=== PATIENT | male | born 1945 | race Caucasian/White ===

== ENCOUNTER 2016-08-16 07:33 | Emergency (ER) | payer BC, OTHER ==
[~2016-08-16] VITALS: Ht 165.1 cm; Wt 64.0 kg
[~2016-08-16 07:33] MED LIST: ATEN-42 PO; CARB1TAB9 PO; DEXL60CA3 PO; DOCU-138 PO; ENAL20TA PO; [UNRECOGNIZED DRUG - CODE] PO
[2016-08-16] MEDS ORDERED: SODIUM CHLORIDE 0.9% 500 ML IV ONE (08:00)
[2016-08-16] MEDS ORDERED: ONDANSETRON HCL 4MG/2ML VIAL IV ONE (08:00)
[2016-08-16] MEDS ORDERED: DEXAMETHASONE 10MG/ML 1ML VIAL IV ONE (08:00)
[2016-08-16] MEDS ORDERED: MECLIZINE 25MG TABLET PO ONE (08:00)
[2016-08-16 08:20] LABS: BASOPHILS % 0.3 % (0.0-2.0); HEMATOCRIT. 38.5 % (42.0-52.0); HEMOGLOBIN. 12.9 g/dL (14.0-18.0); LYMPHOCYTES % 19.7 % (20.0-50.0); MEAN CORPUSCULAR HEMOGLOBIN 29.8 pg (28.0-32.0); MEAN CORPUSCULAR HGB CONC 33.5 g/dL (31.0-37.0); MEAN CORPUSCULAR VOLUME 88.9 fL (80.0-94.0); MEAN PLATELET VOLUME 7.6 fl (7.4-10.4); MONOCYTES % 7.4 % (2.0-8.0); NEUTROPHILS % 70.6 % (40.0-76.0); PLATELET 167 x1000/uL (130-400); RED BLOOD CELL COUNT 4.34 mill/uL (4.7-6.1); RED CELL DISTRIBUTION WIDTH 14.2 % (11.6-14.6); WHITE BLOOD COUNT 6.5 x1000/uL (4.5-11.0)
[2016-08-16 08:25] LABS: CHLORIDE 100 mEq/L (98-107); INDEX HEMOLYSI 1 (1-3); INDEX ICTERIC 1 (1-4); INDEX LIPEMIC 1 (1-3); PARTIAL THROMBOPLASTIN TIME 24.6 sec (24.0-34.0); PROTHROMBIN TIME 10.4 sec
[2016-08-16 08:29] LABS: ALBUMIN 3.6 g/dL (3.4-5.0); ANION GAP 12; CALCIUM 8.6 mg/dL (8.5-10.1); CARBON DIOXIDE 30 mEq/L (21-32); UREA NITROGEN BLOOD 16 mg/dL (7-21)
[2016-08-16 08:30] LABS: ALANINE AMINOTRANSFERASE 9 IU/L (13-61); eGFR > 60 mL/min (>60)
[2016-08-16 08:36] LABS: CREATINE KINASE MB FRACTION 1.5 ng/mL (0.5-3.6); TROPONIN I < 0.02 ng/mL (0.00-0.04)
[2016-08-16 08:38] LABS: NT PRO B-TYPE NATRIURETIC PEP 39 pg/mL (5-125)
[2016-08-16] MEDS ORDERED: NITROGLYCERIN OINT 1GM/INCH UDPKT TD ONE (11:00)
[2016-08-16] MEDS ORDERED: ASPIRIN 81MG TABLET PO ONE (11:00)
[2016-08-16 15:49] VITALS: BP 106/56
== END 2016-08-16 16:12 | disposition left against medical advice (07) ==
LOC: ER 08:13
DX: R07.9 Chest pain, unspecified (principal); R42 Dizziness and giddiness; I10 Essential (primary) hypertension; K21.9 Gastro-esophageal reflux disease without esophagitis; N40.0 Benign prostatic hyperplasia without lower urinary tract symptoms; Z79.1 Long term (current) use of non-steroidal anti-inflammatories (NSAID); Z79.899 Other long term (current) drug therapy; Z90.49 Acquired absence of other specified parts of digestive tract; Z87.891 Personal history of nicotine dependence; Z98.890 Other specified postprocedural states
CPT/HCPCS: 36415; 70450; 71010; 80053; 82553; 83735; 83880; 84484; 85025; 85610; 85730; 93005; 96374; 96375; 99285; J1100; J2405; J7040; J8597

== ENCOUNTER 2018-01-09 04:53 | Emergency (ER) | payer BC ==
[~2018-01-09] VITALS: Ht 165.1 cm; Wt 81.8 kg
[~2018-01-09 04:53] MED LIST changes: +ACET650S25 PO; -[UNRECOGNIZED DRUG - CODE] PO
[2018-01-09] MEDS ORDERED: SODIUM CHLORIDE 0.9% 1,000 ML IV ONE (05:36)
[2018-01-09 06:18] LABS: BASOPHILS % 0.4 % (0.0-2.0); EOSINOPHILS % 2.4 % (0.0-5.0); HEMATOCRIT. 39.8 % (42.0-52.0); HEMOGLOBIN. 13.5 g/dL (14.0-18.0); LYMPHOCYTES % 21.8 % (20.0-50.0); MEAN CORPUSCULAR VOLUME 88.7 fL (80.0-94.0); MEAN PLATELET VOLUME 8.9 fl (7.4-10.4); NEUTROPHILS % 67.4 % (40.0-76.0); PLATELET 224 x1000/uL (130-400); RED BLOOD CELL COUNT 4.49 mill/uL (4.7-6.1); RED CELL DISTRIBUTION WIDTH 13.6 % (11.6-14.6)
[2018-01-09 06:23] LABS: CHLORIDE 102 mEq/L (98-107)
[2018-01-09 08:15] LABS: CLARITY URINE CLEAR (CLEAR); COLOR URINE YELLOW (YELLOW); KETONES URINE NEGATIVE (NEGATIVE); LEUKOCYTE ESTERASE URINE NEGATIVE (NEGATIVE); NITRITE URINE NEGATIVE (NEGATIVE); OCCULT BLOOD URINE 1+ (NEGATIVE); PH URINE 6.5 (4.5-8.0); PROTEIN URINE NEGATIVE (NEGATIVE); SPECIFIC GRAVITY URINE 1.031 (1.005-1.030)
[2018-01-09 11:30] VITALS: BP 97/60
== END 2018-01-09 11:36 | disposition home or self-care (01) ==
LOC: ER 05:12
DX: E86.0 Dehydration (principal); R53.1 Weakness; R31.29 Other microscopic hematuria; I10 Essential (primary) hypertension; M54.31 Sciatica, right side; N40.0 Benign prostatic hyperplasia without lower urinary tract symptoms; G20 Parkinson's disease; Z98.890 Other specified postprocedural states
CPT/HCPCS: 36415; 70450; 71045; 74176; 80053; 81003; 83605; 84484; 85025; 93005; 96360; 96361; 99285; J7030

== ENCOUNTER 2021-01-02 17:39 | Inpatient (IN) | payer MEDICARE, MEDICAID ==
[~2021-01-02] VITALS: Ht 167.6 cm; Wt 68.5 kg
[~2021-01-02 17:39] MED LIST changes: -ACET650S25 PO; -ATEN-42 PO; +CYAN100096 PO; -DEXL60CA3 PO; -DOCU-138 PO; +DOCU-150 PO; -ENAL20TA PO; +ENAL20TA18 PO; +LORA-250 PO; +OMEP40CA12 PO; +PHEN1SUP42 RC; +PRAM0.5T3 PO; +TRAM50TA3 PO
[2021-01-02] MEDS ORDERED: SODIUM CHLORIDE 0.9% 1000ML BAG (SEPSIS BOLUS) IV ONE (20:15)
[2021-01-02 20:35] LABS: HEMATOCRIT. 36.6 % (42.0-52.0); HEMOGLOBIN. 12.5 g/dL (14.0-18.0); MEAN CORPUSCULAR HEMOGLOBIN 30.1 pg (28.0-32.0); MEAN CORPUSCULAR VOLUME 88.5 fL (80.0-94.0); MEAN PLATELET VOLUME 8.3 fl (7.4-10.4); PLATELET 157 x1000/uL (130-400); RED BLOOD CELL COUNT 4.13 mill/uL (4.7-6.1); RED CELL DISTRIBUTION WIDTH 13.9 % (11.6-14.6)
[2021-01-02 20:36] LABS: CHLORIDE 109 mEq/L (98-107)
[2021-01-02 20:46] LABS: INR 1.1; PROTHROMBIN TIME 11.7 sec (9.6-11.0)
[2021-01-02 21:05] LABS: PLATELET ESTIMATE NORMAL
[2021-01-02] MEDS ORDERED: CARBIDOPA/LEVODOPA 25/100MG TABLET PO ONE (22:15)
[2021-01-03] MEDS ORDERED: VANCOMYCIN 1 G PREMIX 200 ML IV NR
[2021-01-03] MEDS ORDERED: POTASSIUM CHLORIDE 20MEQ TABLET SR PO NR
[2021-01-03] MEDS ORDERED: CEFTRIAXONE 1 G PREMIX 50 ML IV NR
[2021-01-03] MEDS ORDERED: IPRATROPIUM/ALBUTEROL 0.5-3(2.5)MG/3ML NEB HHN PRN (01:00)
[2021-01-03] MEDS ORDERED: TRAMADOL 50MG TABLET PO PRN (01:00)
[2021-01-03] MEDS ORDERED: ACETAMINOPHEN 325MG TABLET PO PRN (01:00)
[2021-01-03] MEDS ORDERED: ONDANSETRON HCL 4MG/2ML INJ IV PRN (01:00)
[2021-01-03] MEDS: PIPERACILLIN/TAZ 3.375G PREMIX 50 ML IV SCH ×2 (01:33→06:40)
[2021-01-03] MEDS ORDERED: IOHEXOL-300 100 ML BOTTLE ONE (02:22)
[2021-01-03] MEDS: PRAMIPEXOLE DI-HCL 0.25MG TABLET PO SCH ×3 (03:32→21:41)
[2021-01-03] MEDS: CARBIDOPA/LEVODOPA 25/100MG TABLET PO SCH ×3 (04:06→15:15)
[2021-01-03] MEDS: PANTOPRAZOLE 40MG DR TABLET PO SCH ×2 (06:41→21:41)
[2021-01-03] MEDS: ENOXAPARIN 40MG/0.4ML SYR SUBCUT SCH ×2 (09:00→10:43)
[2021-01-03] MEDS: LISINOPRIL 40MG TABLET PO SCH (09:00)
[2021-01-03 10:00] VITALS: BP 121/73
[2021-01-03] MEDS: CYANOCOBALAMIN 1000MCG TABLET PO SCH (10:44)
[2021-01-03] MEDS: DOCUSATE SODIUM 100MG CAPSULE PO SCH (10:44)
[2021-01-03 12:00] VITALS: BP 132/72
[2021-01-03 12:40] VITALS: BP 121/73
[2021-01-03] MEDS: PIPERACILLIN/TAZOBACTAM 3.375 G in DEXTROSE 5% WATER 50 ML IV SCH ×2 (13:01→18:11)
[2021-01-03 16:00] VITALS: BP 120/70
[2021-01-03] MEDS ORDERED: NALOXONE HCL 0.4MG/ML VIAL IV PRN (17:00)
[2021-01-03 18:30] LABS: BASOPHILS % 0.3 % (0.0-2.0); EOSINOPHILS % 1.8 % (0.0-5.0); HEMATOCRIT. 34.5 % (42.0-52.0); HEMOGLOBIN. 11.8 g/dL (14.0-18.0); LYMPHOCYTES % 16.9 % (20.0-50.0); MEAN CORPUSCULAR HEMOGLOBIN 30.7 pg (28.0-32.0); MEAN CORPUSCULAR VOLUME 90.2 fL (80.0-94.0); PLATELET 141 x1000/uL (130-400); RED BLOOD CELL COUNT 3.83 mill/uL (4.7-6.1); RED CELL DISTRIBUTION WIDTH 14.2 % (11.6-14.6)
[2021-01-03 18:38] LABS: CHLORIDE 109 mEq/L (98-107)
[2021-01-03 20:00] VITALS: BP 121/81
[2021-01-04] VITALS: BP 113/89
[2021-01-04] MEDS: PIPERACILLIN/TAZOBACTAM 3.375 G in DEXTROSE 5% WATER 50 ML IV SCH ×4 (00:30→18:00)
[2021-01-04] MEDS: PRAMIPEXOLE DI-HCL 0.25MG TABLET PO SCH ×2 (03:05→12:33)
[2021-01-04] MEDS: CARBIDOPA/LEVODOPA 25/100MG TABLET PO SCH ×3 (03:05→15:48)
[2021-01-04] MEDS: PANTOPRAZOLE 40MG DR TABLET PO SCH (06:51)
[2021-01-04 07:27] LABS: CHLORIDE 107 mEq/L (98-107)
[2021-01-04 07:50] LABS: BASOPHILS % 0.5 % (0.0-2.0); EOSINOPHILS % 3.5 % (0.0-5.0); HEMOGLOBIN. 11.9 g/dL (14.0-18.0); LYMPHOCYTES % 24.5 % (20.0-50.0); MEAN CORPUSCULAR HEMOGLOBIN 30.5 pg (28.0-32.0); MEAN CORPUSCULAR VOLUME 89.5 fL (80.0-94.0); MEAN PLATELET VOLUME 9.3 fl (7.4-10.4); MONOCYTES % 10.9 % (2.0-8.0); NEUTROPHILS % 60.6 % (40.0-76.0); PLATELET 152 x1000/uL (130-400); RED BLOOD CELL COUNT 3.91 mill/uL (4.7-6.1)
[2021-01-04 08:00] VITALS: BP 111/66
[2021-01-04] MEDS: ENOXAPARIN 40MG/0.4ML SYR SUBCUT SCH ×2 (09:00→09:46)
[2021-01-04] MEDS: LISINOPRIL 40MG TABLET PO SCH (09:45)
[2021-01-04] MEDS: CYANOCOBALAMIN 1000MCG TABLET PO SCH (09:45)
[2021-01-04] MEDS: DOCUSATE SODIUM 100MG CAPSULE PO SCH (09:45)
[2021-01-04 12:00] VITALS: BP 109/71
[2021-01-04 16:00] VITALS: BP 114/60
[2021-01-04 16:35] VITALS: BP 113/60
[2021-01-04 20:00] VITALS: BP_SYST 113; BP_SYST 133; BP_DIAS 55; BP_DIAS 68
== END 2021-01-04 21:00 | disposition home or self-care (01) | DRG 641 ==
LOC: ER 17:39 → MICUSO 01-03 00:09 → EDBEDREQDT 01-03 00:23 → EDBEDREQSVC 01-03 00:23 → EDBEDREQTM 01-03 00:23 → EDBEDREQ 01-03 00:23 → 7EST 01-03 08:43
PROVIDERS: ADMIT Internal Medicine Pulmonary Disease; ATTEND Internal Medicine Pulmonary Disease
DX: E86.0 Dehydration (principal); K52.9 Noninfective gastroenteritis and colitis, unspecified; G20 Parkinson's disease; K59.00 Constipation, unspecified; I10 Essential (primary) hypertension; K21.9 Gastro-esophageal reflux disease without esophagitis; N40.0 Benign prostatic hyperplasia without lower urinary tract symptoms; F17.200 Nicotine dependence, unspecified, uncomplicated; M47.9 Spondylosis, unspecified; E11.9 Type 2 diabetes mellitus without complications; Z79.899 Other long term (current) drug therapy; Z87.440 Personal history of urinary (tract) infections; E87.6 Hypokalemia; D72.825 Bandemia
CPT/HCPCS: 36415; 71045; 74177; 80048; 80053; 82728; 83605; 83615; 84145; 84484; 85025; 85379; 93005; 97162; 99291; J0696; J1650; J2543; J3370; J7030; J7040; J7060; Q9967

== ENCOUNTER 2021-01-08 12:49 | Emergency (ER) | payer MEDICARE, MEDICAID ==
[~2021-01-08] VITALS: Ht 165.1 cm; Wt 68.0 kg
[2021-01-08] MEDS ORDERED: MAGNESIUM/ALUMINUM HYDROXIDE/SIMETHICONE 30ML UDC PO STA (13:23)
[2021-01-08 14:05] LABS: CHLORIDE 111 mEq/L (98-107)
[2021-01-08 14:17] LABS: BASOPHILS % 0.5 % (0.0-2.0); EOSINOPHILS % 2.2 % (0.0-5.0); HEMATOCRIT. 38.4 % (42.0-52.0); HEMOGLOBIN. 12.7 g/dL (14.0-18.0); LYMPHOCYTES % 20.6 % (20.0-50.0); MEAN CORPUSCULAR HEMOGLOBIN 29.6 pg (28.0-32.0); MEAN CORPUSCULAR VOLUME 89.1 fL (80.0-94.0); MONOCYTES % 7.3 % (2.0-8.0); NEUTROPHILS % 69.4 % (40.0-76.0); PLATELET 228 x1000/uL (130-400)
[2021-01-08 14:20] LABS: CLARITY URINE CLEAR (CLEAR); COLOR URINE YELLOW (YELLOW); KETONES URINE TRACE (NEGATIVE); LEUKOCYTE ESTERASE URINE NEGATIVE (NEGATIVE); NITRITE URINE NEGATIVE (NEGATIVE); OCCULT BLOOD URINE NEGATIVE (NEGATIVE); PH URINE 5.5 (4.5-8.0); PROTEIN URINE TRACE (NEGATIVE); SPECIFIC GRAVITY URINE 1.035 (1.005-1.030); UROBILINOGEN URINE 0.2 E.U./dL (0.2-1.0)
[2021-01-08] MEDS ORDERED: ONDA4TAB5 MT (15:32)
[2021-01-08 16:20] VITALS: BP 114/72
== END 2021-01-08 16:24 | disposition home or self-care (01) ==
LOC: ER 12:57
DX: R10.33 Periumbilical pain (principal); K21.9 Gastro-esophageal reflux disease without esophagitis; I10 Essential (primary) hypertension; Z79.899 Other long term (current) drug therapy
CPT/HCPCS: 36415; 74176; 80053; 81003; 85025; 93005; 99285

== ENCOUNTER 2021-09-24 06:09 | Emergency (ER) | payer MEDICARE, MEDICAID ==
[~2021-09-24] VITALS: Ht 170.2 cm; Wt 73.0 kg
[~2021-09-24 06:09] MED LIST changes: -OMEP40CA12 PO; +OMEP40CA20 PO; +ONDA4TAB5 MT
[2021-09-24 06:46] LABS: BASOPHILS % 0.4 % (0.0-2.0); EOSINOPHILS % 2.2 % (0.0-5.0); HEMATOCRIT. 37.8 % (42.0-52.0); HEMOGLOBIN. 12.8 g/dL (14.0-18.0); LYMPHOCYTES % 31.6 % (20.0-50.0); MEAN CORPUSCULAR HEMOGLOBIN 30.7 pg (28.0-32.0); MEAN CORPUSCULAR VOLUME 90.9 fL (80.0-94.0); MEAN PLATELET VOLUME 7.9 fl (7.4-10.4); MONOCYTES % 9.4 % (2.0-8.0); NEUTROPHILS % 56.4 % (40.0-76.0); PLATELET 175 x1000/uL (130-400); RED BLOOD CELL COUNT 4.16 mill/uL (4.7-6.1); RED CELL DISTRIBUTION WIDTH 14.7 % (11.6-14.6)
[2021-09-24 06:50] LABS: CHLORIDE 107 mEq/L (98-107)
[2021-09-24 06:56] LABS: PHOSPHORUS 4.2 mg/dL (2.5-4.9)
[2021-09-24 07:38] LABS: CLARITY URINE CLEAR (CLEAR); COLOR URINE YELLOW (YELLOW); KETONES URINE TRACE (NEGATIVE); LEUKOCYTE ESTERASE URINE 2+ (NEGATIVE); NITRITE URINE NEGATIVE (NEGATIVE); OCCULT BLOOD URINE TRACE (NEGATIVE); PH URINE 5.5 (4.5-8.0); PROTEIN URINE NEGATIVE (NEGATIVE); SPECIFIC GRAVITY URINE 1.023 (1.005-1.030); UROBILINOGEN URINE 0.2 E.U./dL (0.2-1.0)
[2021-09-24] MEDS ORDERED: KETOROLAC 30MG/ML VIAL IV ONE (07:45)
[2021-09-24] MEDS ORDERED: CEFTRIAXONE 1 G PREMIX 50 ML IV ONE (08:30)
[2021-09-24 09:08] VITALS: BP 91/52
[2021-09-24] MEDS ORDERED: KETOROLAC 30MG/ML VIAL IV SCH (09:15)
[2021-09-24] MEDS ORDERED: CEFP200T13 MT (09:17)
== END 2021-09-24 10:42 | disposition home or self-care (01) ==
LOC: ER 06:09
DX: R42 Dizziness and giddiness (principal); N39.0 Urinary tract infection, site not specified; K21.9 Gastro-esophageal reflux disease without esophagitis; I10 Essential (primary) hypertension; Z79.899 Other long term (current) drug therapy
CPT/HCPCS: 36415; 71045; 80053; 81003; 83735; 83880; 84100; 84484; 85025; 87077; 87086; 87186; 93005; 96374; 96375; 99285; J0696; J1885

== ENCOUNTER 2021-11-24 11:11 | Emergency (ER) | payer MEDICARE, MEDICAID ==
[~2021-11-24] VITALS: Ht 157.5 cm; Wt 68.0 kg
[~2021-11-24 11:11] MED LIST changes: +CEFP200T13 MT
[2021-11-24 11:49] LABS: BASOPHILS % 0.4 % (0.0-2.0); EOSINOPHILS % 1.5 % (0.0-5.0); HEMATOCRIT. 37.2 % (42.0-52.0); HEMOGLOBIN. 12.5 g/dL (14.0-18.0); LYMPHOCYTES % 19.9 % (20.0-50.0); MEAN CORPUSCULAR HEMOGLOBIN 30.5 pg (28.0-32.0); MEAN CORPUSCULAR VOLUME 90.5 fL (80.0-94.0); MEAN PLATELET VOLUME 7.7 fl (7.4-10.4); NEUTROPHILS % 72.2 % (40.0-76.0); PLATELET 255 x1000/uL (130-400); RED BLOOD CELL COUNT 4.11 mill/uL (4.7-6.1); RED CELL DISTRIBUTION WIDTH 14.3 % (11.6-14.6)
[2021-11-24 11:58] LABS: CHLORIDE 107 mEq/L (98-107)
[2021-11-24] MEDS ORDERED: FAMOTIDINE 20MG TABLET PO NR (12:15)
[2021-11-24] MEDS ORDERED: MAGNESIUM/ALUMINUM HYDROXIDE/SIMETHICONE 30ML UDC PO NR (12:15)
[2021-11-24] MEDS ORDERED: VISCOUS LIDOCAINE 2% 15 ML UDC PO NR (12:30)
[2021-11-24] MEDS ORDERED: IOHEXOL-350 100 ML BOTTLE ONE (15:56)
[2021-11-24 16:55] VITALS: BP 105/70
== END 2021-11-24 16:56 | disposition home or self-care (01) ==
LOC: ER 11:11
DX: R06.02 Shortness of breath (principal); J02.9 Acute pharyngitis, unspecified; I48.91 Unspecified atrial fibrillation; I10 Essential (primary) hypertension; Z79.899 Other long term (current) drug therapy; Z20.822 Contact with and (suspected) exposure to COVID-19
CPT/HCPCS: 36415; 71045; 71275; 80053; 83880; 84484; 85025; 85379; 87426; 93005; 99285; C9803; Q9967

== ENCOUNTER 2021-12-16 11:33 | Emergency (ER) | payer MEDICARE, MEDICAID ==
[~2021-12-16] VITALS: Ht 165.1 cm; Wt 71.0 kg
[2021-12-16 12:40] LABS: CHLORIDE 108 mEq/L (98-107)
[2021-12-16 14:24] LABS: BASOPHILS % 0.3 % (0.0-2.0); EOSINOPHILS % 2.6 % (0.0-5.0); HEMATOCRIT. 36.4 % (42.0-52.0); HEMOGLOBIN. 12.3 g/dL (14.0-18.0); LYMPHOCYTES % 22.2 % (20.0-50.0); MEAN CORPUSCULAR HEMOGLOBIN 30.5 pg (28.0-32.0); MEAN CORPUSCULAR VOLUME 90.4 fL (80.0-94.0); MEAN PLATELET VOLUME 8.7 fl (7.4-10.4); MONOCYTES % 8.3 % (2.0-8.0); NEUTROPHILS % 66.6 % (40.0-76.0); PLATELET 179 x1000/uL (130-400); RED BLOOD CELL COUNT 4.02 mill/uL (4.7-6.1); RED CELL DISTRIBUTION WIDTH 13.8 % (11.6-14.6)
[2021-12-16] MEDS ORDERED: ONDA4TAB11 PO ×2 (15:26)
[2021-12-16] MEDS ORDERED: MECLIZINE 25MG TABLET PO ONE (15:45)
[2021-12-16 16:31] VITALS: BP 128/73
[2021-12-16] MEDS ORDERED: MECL-159 MT (16:48)
== END 2021-12-16 16:39 | disposition home or self-care (01) ==
LOC: ER 11:33
DX: H81.10 Benign paroxysmal vertigo, unspecified ear (principal); R07.9 Chest pain, unspecified; I48.91 Unspecified atrial fibrillation; D64.9 Anemia, unspecified; I10 Essential (primary) hypertension; G20 Parkinson's disease; Z79.01 Long term (current) use of anticoagulants
CPT/HCPCS: 36415; 71045; 80053; 83880; 84484; 85025; 93005; 99285; J8597

== ENCOUNTER 2022-03-02 21:57 | Inpatient (IN) | payer MEDICARE, MEDICAID ==
[~2022-03-02] VITALS: Ht 165.1 cm; Wt 62.6 kg
[~2022-03-02 21:57] MED LIST changes: +MECL-159 MT
[2022-03-02] MEDS ORDERED: SODIUM CHLORIDE 0.9% 1,000 ML IV ONE (23:30)
[2022-03-02] MEDS ORDERED: MORPHINE SULFATE 4 MG/ML CPJ (NOT FOR IM USE) IV ONE (23:30)
[2022-03-02 23:57] LABS: HEMATOCRIT. 35.9 % (42.0-52.0); HEMOGLOBIN. 12.3 g/dL (14.0-18.0); MEAN CORPUSCULAR HEMOGLOBIN 30.5 pg (28.0-32.0); MEAN CORPUSCULAR VOLUME 89.4 fL (80.0-94.0); MEAN PLATELET VOLUME 8.3 fl (7.4-10.4); PLATELET 147 x1000/uL (130-400); RED BLOOD CELL COUNT 4.01 mill/uL (4.7-6.1); RED CELL DISTRIBUTION WIDTH 13.7 % (11.6-14.6)
[2022-03-03 00:03] LABS: CHLORIDE 103 mEq/L (98-107)
[2022-03-03 00:06] LABS: INR 1.1; PROTHROMBIN TIME 11.3 sec (9.6-11.0)
[2022-03-03 01:01] LABS: CLARITY URINE CLOUDY (CLEAR); COLOR URINE YELLOW (YELLOW); KETONES URINE TRACE (NEGATIVE); LEUKOCYTE ESTERASE URINE 3+ (NEGATIVE); NITRITE URINE NEGATIVE (NEGATIVE); OCCULT BLOOD URINE 1+ (NEGATIVE); PH URINE 5.5 (4.5-8.0); PROTEIN URINE 1+ (NEGATIVE)
[2022-03-03] MEDS ORDERED: MORPHINE SULFATE 4 MG/ML CPJ (NOT FOR IM USE) IV ONE (01:45)
[2022-03-03] MEDS ORDERED: CEFTRIAXONE 1 G PREMIX 50 ML IV ONE (02:30)
[2022-03-03 02:39] LABS: PLATELET ESTIMATE NORMAL
[2022-03-03] MEDS ORDERED: ASPIRIN 325MG TABLET PO ONE (03:15)
[2022-03-03] MEDS ORDERED: IOHEXOL-350 100 ML BOTTLE ONE (05:32)
[2022-03-03] MEDS ORDERED: DEXT 5%/0.9% NACL 1,000 ML IV SCH (06:00)
[2022-03-03] MEDS ORDERED: PIPERACILLIN/TAZ 3.375G PREMIX 50 ML IV NR (06:00)
[2022-03-03 08:49] VITALS: BP 97/54
[2022-03-03 09:04] VITALS: BP 97/54
[2022-03-03] MEDS ORDERED: METO25TA6 PO (09:13)
[2022-03-03] MEDS ORDERED: FAMO20TA8 MT (09:17)
[2022-03-03] MEDS ORDERED: FURO20TA4 PO (09:19)
[2022-03-03] MEDS ORDERED: PANTOPRAZOLE 40MG DR TABLET PO SCH (10:00)
[2022-03-03] MEDS: ENOXAPARIN 40MG/0.4ML SYR SUBCUT SCH (11:32)
[2022-03-03] MEDS ORDERED: NALOXONE HCL 0.4MG/ML VIAL IV PRN (11:45)
[2022-03-03 12:12] VITALS: BP 90/54
[2022-03-03] MEDS: HYDROCODONE/ACETAMINOPHEN 5/325MG TABLET PO PRN ×2 (12:14→23:04)
[2022-03-03] MEDS ORDERED: PIPERACILLIN/TAZOBACTAM 3.375G in DEXT 5% WATER 50ML IV SCH (14:00)
[2022-03-03] MEDS ORDERED: CARB-32 MT (14:56)
[2022-03-03 16:00] VITALS: BP 90/43
[2022-03-03] MEDS: MIDODRINE HCL 5MG TABLET PO SCH (16:12)
[2022-03-03] MEDS: CARBIDOPA/LEVODOPA 25/100MG TABLET PO SCH (16:12)
[2022-03-03] MEDS: TAMSULOSIN HCL 0.4MG SR CAPSULE PO SCH (16:42)
[2022-03-03] MEDS: SODIUM CHLORIDE 0.45% 1,000 ML IV SCH (16:45)
[2022-03-03] MEDS ORDERED: CARBIDOPA/LEVODOPA 25/100MG TABLET PO SCH (17:00)
[2022-03-03] MEDS ORDERED: MAGNESIUM HYDROXIDE 400MG/5ML 30ML UDC PO NR (17:00)
[2022-03-03] MEDS: PIPERACILLIN/TAZOBACTAM 3.375G in DEXT 5% WATER 50ML IV SCH (18:34)
[2022-03-03 20:00] VITALS: BP 92/59
[2022-03-03] MEDS: CARBIDOPA/LEVODOPA 25/100MG TABLET CR PO SCH (21:09)
[2022-03-03] MEDS: FAMOTIDINE 20MG TABLET PO SCH (21:10)
[2022-03-04] VITALS (7 sets, daily range): BP systolic 85–111; BP diastolic 48–68
[2022-03-04] MEDS: PIPERACILLIN/TAZOBACTAM 3.375G in DEXT 5% WATER 50ML IV SCH ×3 (05:05→21:18)
[2022-03-04] MEDS: PRAMIPEXOLE DI-HCL 0.25MG TABLET PO SCH ×4 (05:05→21:30)
[2022-03-04] MEDS: SODIUM CHLORIDE 0.45% 1,000 ML IV SCH ×2 (05:50→15:11)
[2022-03-04 08:04] LABS: HEMATOCRIT. 36.1 % (42.0-52.0); HEMOGLOBIN. 12.3 g/dL (14.0-18.0); MEAN CORPUSCULAR HEMOGLOBIN 30.5 pg (28.0-32.0); MEAN CORPUSCULAR VOLUME 89.4 fL (80.0-94.0); PLATELET 102 x1000/uL (130-400); RED BLOOD CELL COUNT 4.04 mill/uL (4.7-6.1); RED CELL DISTRIBUTION WIDTH 13.7 % (11.6-14.6)
[2022-03-04 08:05] LABS: CHLORIDE 106 mEq/L (98-107)
[2022-03-04] MEDS: ASPIRIN 81MG TABLET PO SCH (08:27)
[2022-03-04] MEDS: ENOXAPARIN 40MG/0.4ML SYR SUBCUT SCH (08:27)
[2022-03-04] MEDS: MIDODRINE HCL 5MG TABLET PO SCH ×3 (08:27→16:01)
[2022-03-04] MEDS: DOCUSATE SODIUM 100MG CAPSULE PO SCH (08:28)
[2022-03-04] MEDS: CARBIDOPA/LEVODOPA 25/100MG TABLET PO SCH ×3 (08:28→16:01)
[2022-03-04] MEDS: FAMOTIDINE 20MG TABLET PO SCH ×2 (08:28→21:19)
[2022-03-04] MEDS: TAMSULOSIN HCL 0.4MG SR CAPSULE PO SCH (08:28)
[2022-03-04 09:23] LABS: PLATELET ESTIMATE SLIGHTLY DECREASED
[2022-03-04] MEDS ORDERED: MAGNESIUM/ALUMINUM HYDROXIDE/SIMETHICONE 30ML UDC PO PRN (11:15)
[2022-03-04] MEDS: ATORVASTATIN CALCIUM 20MG TABLET PO SCH (21:18)
[2022-03-04] MEDS: HYDROCODONE/ACETAMINOPHEN 5/325MG TABLET PO PRN (21:18)
[2022-03-04] MEDS: CARBIDOPA/LEVODOPA 25/100MG TABLET CR PO SCH (21:30)
[2022-03-05] VITALS: BP 95/57
[2022-03-05 04:00] VITALS: BP 102/54
[2022-03-05] MEDS: PRAMIPEXOLE DI-HCL 0.25MG TABLET PO SCH ×3 (05:58→22:15)
[2022-03-05] MEDS: PIPERACILLIN/TAZOBACTAM 3.375G in DEXT 5% WATER 50ML IV SCH ×2 (05:58→16:05)
[2022-03-05 07:38] LABS: BASOPHILS % 0.3 % (0.0-2.0); HEMATOCRIT. 35.2 % (42.0-52.0); HEMOGLOBIN. 12.3 g/dL (14.0-18.0); LYMPHOCYTES % 15.9 % (20.0-50.0); MEAN CORPUSCULAR HEMOGLOBIN 30.9 pg (28.0-32.0); MEAN CORPUSCULAR VOLUME 88.7 fL (80.0-94.0); MEAN PLATELET VOLUME 9.2 fl (7.4-10.4); MONOCYTES % 11.3 % (2.0-8.0); NEUTROPHILS % 69.5 % (40.0-76.0); PLATELET 108 x1000/uL (130-400); RED BLOOD CELL COUNT 3.97 mill/uL (4.7-6.1); RED CELL DISTRIBUTION WIDTH 13.7 % (11.6-14.6)
[2022-03-05 08:00] VITALS: BP 120/73
[2022-03-05 09:13] LABS: CHLORIDE 106 mEq/L (98-107)
[2022-03-05] MEDS: ENOXAPARIN 40MG/0.4ML SYR SUBCUT SCH (09:16)
[2022-03-05] MEDS: MIDODRINE HCL 5MG TABLET PO SCH ×3 (09:17→18:04)
[2022-03-05] MEDS: FAMOTIDINE 20MG TABLET PO SCH ×2 (09:17→20:39)
[2022-03-05] MEDS: DOCUSATE SODIUM 100MG CAPSULE PO SCH (09:17)
[2022-03-05] MEDS: ASPIRIN 81MG TABLET PO SCH (09:17)
[2022-03-05] MEDS: CARBIDOPA/LEVODOPA 25/100MG TABLET PO SCH ×3 (09:17→18:04)
[2022-03-05] MEDS: SODIUM CHLORIDE 0.45% 1,000 ML IV SCH ×2 (09:24→20:46)
[2022-03-05] MEDS: TAMSULOSIN HCL 0.4MG SR CAPSULE PO SCH (09:28)
[2022-03-05] MEDS ORDERED: REGADENOSON 0.4 MG/5 ML IV NR (11:15)
[2022-03-05 12:00] VITALS: BP 126/78
[2022-03-05] MEDS ORDERED: ONDANSETRON HCL 4MG/2ML INJ IV PRN (12:15)
[2022-03-05 16:00] VITALS: BP 100/68
[2022-03-05 20:00] VITALS: BP 127/72
[2022-03-05] MEDS: ATORVASTATIN CALCIUM 20MG TABLET PO SCH (20:39)
[2022-03-05] MEDS: MEROPENEM 1,000 MG in SODIUM CHLORIDE 0.9% 100 ML IV SCH (20:39)
[2022-03-05] MEDS: CARBIDOPA/LEVODOPA 25/100MG TABLET CR PO SCH (22:22)
[2022-03-06] VITALS: BP 112/71
[2022-03-06] MEDS: MEROPENEM 1,000 MG in SODIUM CHLORIDE 0.9% 100 ML IV SCH ×3 (03:14→21:02)
[2022-03-06 04:00] VITALS: BP 115/70
[2022-03-06] MEDS: LACTULOSE 20G/30ML UDC PO PRN (04:21)
[2022-03-06] MEDS: PRAMIPEXOLE DI-HCL 0.25MG TABLET PO SCH ×3 (06:57→22:00)
[2022-03-06] MEDS ORDERED: PRAMIPEXOLE DI-HCL 0.25MG TABLET PO NR (07:00)
[2022-03-06 08:00] VITALS: BP 123/72
[2022-03-06 08:24] LABS: BASOPHILS % 0.5 % (0.0-2.0); EOSINOPHILS % 3.9 % (0.0-5.0); HEMATOCRIT. 36.5 % (42.0-52.0); HEMOGLOBIN. 12.4 g/dL (14.0-18.0); LYMPHOCYTES % 27.8 % (20.0-50.0); MEAN CORPUSCULAR HEMOGLOBIN 30.6 pg (28.0-32.0); MEAN CORPUSCULAR VOLUME 89.9 fL (80.0-94.0); MONOCYTES % 11.2 % (2.0-8.0); NEUTROPHILS % 56.6 % (40.0-76.0); PLATELET 137 x1000/uL (130-400); RED BLOOD CELL COUNT 4.06 mill/uL (4.7-6.1); RED CELL DISTRIBUTION WIDTH 13.5 % (11.6-14.6)
[2022-03-06 08:43] LABS: CHLORIDE 109 mEq/L (98-107)
[2022-03-06] MEDS: ENOXAPARIN 40MG/0.4ML SYR SUBCUT SCH (09:56)
[2022-03-06] MEDS: ASPIRIN 81MG TABLET PO SCH (09:56)
[2022-03-06] MEDS: DOCUSATE SODIUM 100MG CAPSULE PO SCH (09:56)
[2022-03-06] MEDS: TAMSULOSIN HCL 0.4MG SR CAPSULE PO SCH (09:56)
[2022-03-06] MEDS: CARBIDOPA/LEVODOPA 25/100MG TABLET PO SCH ×3 (09:56→18:23)
[2022-03-06] MEDS: MIDODRINE HCL 5MG TABLET PO SCH ×3 (09:56→18:23)
[2022-03-06] MEDS: FAMOTIDINE 20MG TABLET PO SCH ×2 (09:56→21:15)
[2022-03-06 12:00] VITALS: BP 128/80
[2022-03-06] MEDS: SODIUM CHLORIDE 0.45% 1,000 ML IV SCH (12:27)
[2022-03-06] MEDS ORDERED: LACTULOSE 20G/30ML UDC PO SCH (13:00)
[2022-03-06 16:00] VITALS: BP 108/67
[2022-03-06 20:00] VITALS: BP 116/73
[2022-03-06] MEDS: ATORVASTATIN CALCIUM 20MG TABLET PO SCH (21:15)
[2022-03-06] MEDS: CARBIDOPA/LEVODOPA 25/100MG TABLET CR PO SCH (21:21)
[2022-03-07] VITALS: BP 104/69
[2022-03-07] MEDS: SODIUM CHLORIDE 0.45% 1,000 ML IV SCH (00:43)
[2022-03-07] MEDS: LACTULOSE 20G/30ML UDC PO PRN (00:46)
[2022-03-07 04:00] VITALS: BP 115/77
[2022-03-07] MEDS: MEROPENEM 1,000 MG in SODIUM CHLORIDE 0.9% 100 ML IV SCH ×2 (04:27→13:29)
[2022-03-07 08:00] VITALS: BP 135/82
[2022-03-07] MEDS: DOCUSATE SODIUM 100MG CAPSULE PO SCH (09:00)
[2022-03-07] MEDS: TAMSULOSIN HCL 0.4MG SR CAPSULE PO SCH (09:37)
[2022-03-07] MEDS: CARBIDOPA/LEVODOPA 25/100MG TABLET PO SCH ×2 (09:37→13:29)
[2022-03-07] MEDS: FAMOTIDINE 20MG TABLET PO SCH (09:37)
[2022-03-07] MEDS: MIDODRINE HCL 5MG TABLET PO SCH ×2 (09:38→13:33)
[2022-03-07] MEDS: ENOXAPARIN 40MG/0.4ML SYR SUBCUT SCH (09:38)
[2022-03-07] MEDS: ASPIRIN 81MG TABLET PO SCH (09:38)
[2022-03-07 12:00] VITALS: BP 117/75
[2022-03-07 15:16] VITALS: BP 117/68
== END 2022-03-07 16:05 | disposition home health service (06) | DRG 871 ==
LOC: ER 21:57 → 6WST 03-03 03:14 → ENRESERV 03-03 07:13
PROVIDERS: ADMIT Internal Medicine Pulmonary Disease; ATTEND Internal Medicine Pulmonary Disease
DX: A41.9 Sepsis, unspecified organism (principal); I21.4 Non-ST elevation (NSTEMI) myocardial infarction; E44.0 Moderate protein-calorie malnutrition; N13.8 Other obstructive and reflux uropathy; N12 Tubulo-interstitial nephritis, not specified as acute or chronic; Z16.12 Extended spectrum beta lactamase (ESBL) resistance; D64.9 Anemia, unspecified; G20 Parkinson's disease; K56.41 Fecal impaction; B96.20 Unspecified Escherichia coli [E. coli] as the cause of diseases classified elsewhere; N40.1 Benign prostatic hyperplasia with lower urinary tract symptoms; K21.9 Gastro-esophageal reflux disease without esophagitis; D69.6 Thrombocytopenia, unspecified; I48.0 Paroxysmal atrial fibrillation; I07.1 Rheumatic tricuspid insufficiency; E78.5 Hyperlipidemia, unspecified; E11.9 Type 2 diabetes mellitus without complications; I25.10 Atherosclerotic heart disease of native coronary artery without angina pectoris; I10 Essential (primary) hypertension; Z79.01 Long term (current) use of anticoagulants; Z68.23 Body mass index [BMI] 23.0-23.9, adult; Z79.899 Other long term (current) drug therapy
CPT/HCPCS: 36415; 71045; 71275; 74174; 78452; 80048; 80053; 81003; 83735; 83880; 84484; 85025; 87077; 87186; 93005; 93017; 93306; 99285; A9500; J0696; J1650; J2185; J2270; J2405; J2543; J2785; J7030; J7050; J7060; Q9967

== ENCOUNTER 2022-05-23 18:54 | Inpatient (IN) | payer MEDICARE, MEDICAID ==
[~2022-05-23] VITALS: Ht 172.7 cm; Wt 61.5 kg
[~2022-05-23 18:54] MED LIST changes: +CARB-32 MT; -CARB1TAB9 PO; -CEFP200T13 MT; -ENAL20TA18 PO; +FAMO20TA8 MT; +FURO20TA4 PO; -LORA-250 PO; -MECL-159 MT; +METO25TA6 PO; -ONDA4TAB5 MT; -TRAM50TA3 PO
[2022-05-23] MEDS ORDERED: SODIUM CHLORIDE 0.9% 1000ML BAG (SEPSIS BOLUS) IV ONE (19:45)
[2022-05-23 20:14] LABS: HEMATOCRIT. 35.9 % (42.0-52.0); HEMOGLOBIN. 11.9 g/dL (14.0-18.0); MEAN CORPUSCULAR HEMOGLOBIN 28.9 pg (28.0-32.0); MEAN CORPUSCULAR VOLUME 86.8 fL (80.0-94.0); MEAN PLATELET VOLUME 8.1 fl (7.4-10.4); PLATELET 118 x1000/uL (130-400); RED BLOOD CELL COUNT 4.13 mill/uL (4.7-6.1); RED CELL DISTRIBUTION WIDTH 14.9 % (11.6-14.6)
[2022-05-23 20:37] LABS: CHLORIDE 103 mEq/L (98-107)
[2022-05-23 20:57] LABS: PLATELET ESTIMATE DECREASED
[2022-05-23] MEDS ORDERED: MEROPENEM 1,000 MG in SODIUM CHLORIDE 0.9% 100 ML IV STA (21:07)
[2022-05-23 23:12] LABS: CLARITY URINE TURBID (CLEAR); COLOR URINE YELLOW (YELLOW); KETONES URINE TRACE (NEGATIVE); LEUKOCYTE ESTERASE URINE 3+ (NEGATIVE); NITRITE URINE NEGATIVE (NEGATIVE); OCCULT BLOOD URINE 2+ (NEGATIVE); PH URINE 5.5 (4.5-8.0); PROTEIN URINE 1+ (NEGATIVE); SPECIFIC GRAVITY URINE 1.016 (1.005-1.030)
[2022-05-24] MEDS ORDERED: NOREPINEPHRINE 8MG/250ML PMX 250 ML IV ONE (00:30)
[2022-05-24] MEDS ORDERED: NOREPINEPHRINE 8 MG in DEXTROSE 5% WATER 250 ML IV NR (00:45)
[2022-05-24] MEDS ORDERED: POTASSIUM CHLORIDE 20MEQ/PACKET PO NR (01:45)
[2022-05-24] MEDS ORDERED: ONDANSETRON HCL 4MG/2ML INJ IV PRN (04:15)
[2022-05-24] MEDS ORDERED: ZOLPIDEM TARTRATE 5MG TABLET PO PRN (04:15)
[2022-05-24] MEDS ORDERED: DOCUSATE SODIUM 100MG CAPSULE PO PRN (04:15)
[2022-05-24] MEDS ORDERED: MORPHINE SULFATE 2 MG/ML CPJ (NOT FOR IM USE) IV NR (04:15)
[2022-05-24] MEDS ORDERED: MAGNESIUM/ALUMINUM HYDROXIDE/SIMETHICONE 30ML UDC PO PRN (04:15)
[2022-05-24] MEDS ORDERED: SODIUM CHLORIDE 0.9% 1,000 ML IV ONE (04:15)
[2022-05-24] MEDS ORDERED: HYDROMORPHONE HCL/PF 2MG/ML CPJ IV PRN (04:15)
[2022-05-24] MEDS ORDERED: AMIODARONE HCL 150 MG in DEXT 5% WATER 100 ML IV NR (05:00)
[2022-05-24 05:05] LABS: BG BASE EXCESS -0.6 mmol/L (-2.0-2.0); BG CARBOXYHEMOGLOBIN 0.4 % (0.5-1.5); BG FRACTION INSPIRED OXYGEN 21; BG HCO3 ACT 22.9 mmol/L (22.0-26.0); BG METHEMOGLOBIN 0.3 % (0.0-1.5); BG OXYHEMOGLOBIN 92.3 % (94.0-97.0); BG PCO2 33.8 mmHg (35.0-45.0); BG PH 7.449 (7.350-7.450); BG PO2 65.1 mmHg (75.0-100.0); BG TOTAL HEMOGLOBIN 11.6 g/dL (12.0-18.0); BG VENT MODE ROOM AIR
[2022-05-24 06:05] LABS: CHLORIDE 113 mEq/L (98-107)
[2022-05-24] MEDS: PRAMIPEXOLE DI-HCL 0.25MG TABLET PO SCH ×3 (08:42→21:15)
[2022-05-24] MEDS: MEROPENEM 1,000 MG in SODIUM CHLORIDE 0.9% 100 ML IV SCH ×3 (08:43→21:14)
[2022-05-24] MEDS: CARBIDOPA/LEVODOPA 25/250MG TABLET PO SCH ×3 (08:43→22:18)
[2022-05-24] MEDS: ENOXAPARIN 40MG/0.4ML SYR SUBCUT SCH (08:48)
[2022-05-24] MEDS: FAMOTIDINE 20MG TABLET PO SCH ×2 (08:49→20:31)
[2022-05-24] MEDS: DOCUSATE SODIUM 100MG CAPSULE PO SCH (08:55)
[2022-05-24] MEDS ORDERED: METOPROLOL TARTRATE 25MG TABLET PO SCH (09:00)
[2022-05-24] MEDS: CYANOCOBALAMIN 1000MCG TABLET PO SCH (09:06)
[2022-05-24 15:40] VITALS: BP 86/52
[2022-05-24] MEDS ORDERED: SODIUM CHLORIDE 0.9% 500 ML IV ONE (16:30)
[2022-05-24] MEDS: MIDODRINE HCL 5MG TABLET PO SCH ×2 (16:40→21:15)
[2022-05-24 17:58] VITALS: BP 86/52
[2022-05-24 18:00] VITALS: BP 101/55
[2022-05-24 20:00] VITALS: BP 95/63
[2022-05-25] VITALS (7 sets, daily range): BP systolic 106–134; BP diastolic 58–80
[2022-05-25] MEDS: MIDODRINE HCL 5MG TABLET PO SCH (05:21)
[2022-05-25] MEDS: MEROPENEM 1,000 MG in SODIUM CHLORIDE 0.9% 100 ML IV SCH ×3 (05:21→21:09)
[2022-05-25] MEDS: PRAMIPEXOLE DI-HCL 0.25MG TABLET PO SCH ×3 (05:21→21:09)
[2022-05-25] MEDS: CARBIDOPA/LEVODOPA 25/250MG TABLET PO SCH ×3 (06:01→21:09)
[2022-05-25] MEDS: CYANOCOBALAMIN 1000MCG TABLET PO SCH (08:04)
[2022-05-25] MEDS: DOCUSATE SODIUM 100MG CAPSULE PO SCH (08:04)
[2022-05-25] MEDS: FAMOTIDINE 20MG TABLET PO SCH ×2 (08:05→20:33)
[2022-05-25] MEDS: ENOXAPARIN 40MG/0.4ML SYR SUBCUT SCH (08:05)
[2022-05-25 17:18] LABS: BASOPHILS % 0.4 % (0.0-2.0); EOSINOPHILS % 1.6 % (0.0-5.0); HEMATOCRIT. 34.1 % (42.0-52.0); HEMOGLOBIN. 11.6 g/dL (14.0-18.0); LYMPHOCYTES % 12.8 % (20.0-50.0); MEAN CORPUSCULAR HEMOGLOBIN 29.1 pg (28.0-32.0); MEAN CORPUSCULAR VOLUME 85.7 fL (80.0-94.0); MEAN PLATELET VOLUME 9.4 fl (7.4-10.4); NEUTROPHILS % 73.2 % (40.0-76.0); PLATELET 86 x1000/uL (130-400); RED BLOOD CELL COUNT 3.98 mill/uL (4.7-6.1); RED CELL DISTRIBUTION WIDTH 14.8 % (11.6-14.6)
[2022-05-25 17:24] LABS: CHLORIDE 107 mEq/L (98-107)
[2022-05-25] MEDS: ENOXAPARIN 80MG/0.8ML SYR SUBCUT SCH (18:00)
[2022-05-25] MEDS: ACETAMINOPHEN 325MG TABLET PO PRN (22:16)
[2022-05-26] VITALS: BP 122/71
[2022-05-26 04:00] VITALS: BP 100/73
[2022-05-26] MEDS: MEROPENEM 1,000 MG in SODIUM CHLORIDE 0.9% 100 ML IV SCH ×3 (05:32→21:57)
[2022-05-26] MEDS: PRAMIPEXOLE DI-HCL 0.25MG TABLET PO SCH ×3 (05:32→21:53)
[2022-05-26] MEDS: ENOXAPARIN 80MG/0.8ML SYR SUBCUT SCH (05:32)
[2022-05-26] MEDS: CARBIDOPA/LEVODOPA 25/250MG TABLET PO SCH ×3 (05:32→21:53)
[2022-05-26 06:40] LABS: PROTHROMBIN TIME 10.3 sec (9.6-11.0)
[2022-05-26 08:00] VITALS: BP 115/84
[2022-05-26] MEDS: CYANOCOBALAMIN 1000MCG TABLET PO SCH (09:55)
[2022-05-26] MEDS: DOCUSATE SODIUM 100MG CAPSULE PO SCH ×2 (09:55→21:53)
[2022-05-26] MEDS: FAMOTIDINE 20MG TABLET PO SCH ×2 (09:55→21:53)
[2022-05-26 12:00] VITALS: BP 120/80
[2022-05-26 16:00] VITALS: BP 125/90
[2022-05-26 20:30] VITALS: BP 118/84
[2022-05-27] VITALS: BP 80/40
[2022-05-27 05:30] VITALS: BP 107/76
[2022-05-27] MEDS: MEROPENEM 1,000 MG in SODIUM CHLORIDE 0.9% 100 ML IV SCH ×3 (06:16→21:24)
[2022-05-27] MEDS: CARBIDOPA/LEVODOPA 25/250MG TABLET PO SCH ×3 (06:16→21:15)
[2022-05-27] MEDS: PRAMIPEXOLE DI-HCL 0.25MG TABLET PO SCH ×3 (06:16→21:15)
[2022-05-27 08:06] VITALS: BP 110/82
[2022-05-27] MEDS: FAMOTIDINE 20MG TABLET PO SCH ×2 (08:24→20:30)
[2022-05-27] MEDS: DOCUSATE SODIUM 100MG CAPSULE PO SCH (08:24)
[2022-05-27] MEDS: CYANOCOBALAMIN 1000MCG TABLET PO SCH (08:24)
[2022-05-27 11:20] VITALS: BP 130/80
[2022-05-27] MEDS: POLYETHYLENE GLYCOL 3350 (17GM) 1 DOSE PACK PO SCH (15:24)
[2022-05-27 15:36] VITALS: BP 99/56
[2022-05-27] MEDS: HEMORRHOIDAL SUPP PR PRN (16:06)
[2022-05-27 20:00] VITALS: BP 134/84
[2022-05-28] VITALS: BP 100/73
[2022-05-28 04:00] VITALS: BP 110/75
[2022-05-28] MEDS: CARBIDOPA/LEVODOPA 25/250MG TABLET PO SCH ×3 (05:01→21:05)
[2022-05-28] MEDS: MEROPENEM 1,000 MG in SODIUM CHLORIDE 0.9% 100 ML IV SCH ×3 (05:01→21:05)
[2022-05-28] MEDS: PRAMIPEXOLE DI-HCL 0.25MG TABLET PO SCH ×3 (05:03→21:05)
[2022-05-28 06:08] LABS: BASOPHILS % 0.5 % (0.0-2.0); HEMATOCRIT. 37.2 % (42.0-52.0); HEMOGLOBIN. 12.7 g/dL (14.0-18.0); LYMPHOCYTES % 24.7 % (20.0-50.0); MEAN CORPUSCULAR HEMOGLOBIN 28.9 pg (28.0-32.0); MEAN CORPUSCULAR VOLUME 84.6 fL (80.0-94.0); MEAN PLATELET VOLUME 8.9 fl (7.4-10.4); MONOCYTES % 11.8 % (2.0-8.0); PLATELET 129 x1000/uL (130-400); RED CELL DISTRIBUTION WIDTH 14.7 % (11.6-14.6)
[2022-05-28 08:00] VITALS: BP 118/76
[2022-05-28 08:13] LABS: CHLORIDE 103 mEq/L (98-107)
[2022-05-28] MEDS: FAMOTIDINE 20MG TABLET PO SCH ×2 (09:04→21:05)
[2022-05-28] MEDS: DOCUSATE SODIUM 100MG CAPSULE PO SCH (09:04)
[2022-05-28] MEDS: CYANOCOBALAMIN 1000MCG TABLET PO SCH (09:04)
[2022-05-28] MEDS: POLYETHYLENE GLYCOL 3350 (17GM) 1 DOSE PACK PO SCH (09:05)
[2022-05-28 12:00] VITALS: BP 133/75
[2022-05-28] MEDS ORDERED: LACTULOSE 20G/30ML UDC PO NR (15:45)
[2022-05-28 16:00] VITALS: BP 113/71
[2022-05-28 20:00] VITALS: BP 103/66
[2022-05-28] MEDS: HEMORRHOIDAL SUPP PR PRN (21:13)
[2022-05-29] VITALS (7 sets, daily range): BP systolic 100–116; BP diastolic 56–77
[2022-05-29] MEDS: CARBIDOPA/LEVODOPA 25/250MG TABLET PO SCH ×3 (05:09→21:04)
[2022-05-29] MEDS: MEROPENEM 1,000 MG in SODIUM CHLORIDE 0.9% 100 ML IV SCH ×3 (05:09→21:04)
[2022-05-29] MEDS: PRAMIPEXOLE DI-HCL 0.25MG TABLET PO SCH ×3 (05:09→21:04)
[2022-05-29] MEDS: ACETAMINOPHEN 325MG TABLET PO PRN ×2 (06:32→06:36)
[2022-05-29] MEDS: CYANOCOBALAMIN 1000MCG TABLET PO SCH (08:30)
[2022-05-29] MEDS: FAMOTIDINE 20MG TABLET PO SCH ×2 (08:30→21:04)
[2022-05-29] MEDS: DOCUSATE SODIUM 100MG CAPSULE PO SCH (08:30)
[2022-05-30] VITALS: BP 99/65
[2022-05-30 04:00] VITALS: BP 113/78
[2022-05-30] MEDS: CARBIDOPA/LEVODOPA 25/250MG TABLET PO SCH ×3 (05:04→22:10)
[2022-05-30] MEDS: PRAMIPEXOLE DI-HCL 0.25MG TABLET PO SCH ×3 (05:04→22:10)
[2022-05-30] MEDS: MEROPENEM 1,000 MG in SODIUM CHLORIDE 0.9% 100 ML IV SCH ×3 (05:04→22:11)
[2022-05-30 08:00] VITALS: BP 102/68
[2022-05-30] MEDS: FAMOTIDINE 20MG TABLET PO SCH ×2 (08:11→22:10)
[2022-05-30] MEDS: DOCUSATE SODIUM 100MG CAPSULE PO SCH (08:11)
[2022-05-30] MEDS: CYANOCOBALAMIN 1000MCG TABLET PO SCH (08:11)
[2022-05-30 11:48] VITALS: BP 109/71
[2022-05-30 20:00] VITALS: BP 135/90
== END 2022-05-30 23:52 | disposition home or self-care (01) | DRG 871 ==
LOC: ER 18:54 → MICUSO 05-24 00:28 → EDBEDREQTM 05-24 00:44 → EDBEDREQ 05-24 00:44 → EDBEDREQSVC 05-24 00:44 → 8WST 05-24 15:38
PROVIDERS: ADMIT Internal Medicine Pulmonary Disease; ATTEND Internal Medicine Pulmonary Disease
PROC: 02HV33Z Insertion of Infusion Device into Superior Vena Cava, Percutaneous Approach (ICD-10-PCS; principal; 2022-05-24)
PROC: B548ZZA Ultrasonography of Superior Vena Cava, Guidance (ICD-10-PCS; 2022-05-24)
PROC: 02HV33Z Insertion of Infusion Device into Superior Vena Cava, Percutaneous Approach (ICD-10-PCS; 2022-05-26)
PROC: B548ZZA Ultrasonography of Superior Vena Cava, Guidance (ICD-10-PCS; 2022-05-26)
PROC: B5181ZA Fluoroscopy of Superior Vena Cava using Low Osmolar Contrast, Guidance (ICD-10-PCS; 2022-05-26)
DX: A41.50 Gram-negative sepsis, unspecified (principal); R65.21 Severe sepsis with septic shock; D61.818 Other pancytopenia; E44.0 Moderate protein-calorie malnutrition; N39.0 Urinary tract infection, site not specified; E87.20 Acidosis, unspecified; E78.5 Hyperlipidemia, unspecified; E87.6 Hypokalemia; G20 Parkinson's disease; I10 Essential (primary) hypertension; D64.9 Anemia, unspecified; R77.8 Other specified abnormalities of plasma proteins; I48.0 Paroxysmal atrial fibrillation; K59.00 Constipation, unspecified; Z68.20 Body mass index [BMI] 20.0-20.9, adult; R32 Unspecified urinary incontinence; K21.9 Gastro-esophageal reflux disease without esophagitis; I25.10 Atherosclerotic heart disease of native coronary artery without angina pectoris; Z79.899 Other long term (current) drug therapy; Z79.01 Long term (current) use of anticoagulants; Z86.19 Personal history of other infectious and parasitic diseases
CPT/HCPCS: 36415; 36573; 36600; 71045; 80048; 80053; 81003; 82375; 82805; 83605; 83880; 84145; 84484; 85025; 87077; 87186; 87426; 93005; 97112; 97116; 97162; 97166; 97530; 97535; 99291; C1725; J0282; J1650; J2185; J2270; J3490; J7030; J7050; J7060

== ENCOUNTER 2022-09-05 04:28 | Emergency (ER) | payer MEDICARE, MEDICAID ==
[~2022-09-05] VITALS: Ht 175.3 cm; Wt 78.0 kg
[2022-09-05 05:42] LABS: BASOPHILS % 0.2 % (0.0-2.0); EOSINOPHILS % 1.4 % (0.0-5.0); HEMATOCRIT. 37.3 % (42.0-52.0); HEMOGLOBIN. 12.7 g/dL (14.0-18.0); LYMPHOCYTES % 26.3 % (20.0-50.0); MEAN CORPUSCULAR HEMOGLOBIN 29.6 pg (28.0-32.0); MEAN CORPUSCULAR VOLUME 87.2 fL (80.0-94.0); MEAN PLATELET VOLUME 8.1 fl (7.4-10.4); MONOCYTES % 6.9 % (2.0-8.0); NEUTROPHILS % 65.2 % (40.0-76.0); PLATELET 182 x1000/uL (130-400); RED BLOOD CELL COUNT 4.28 mill/uL (4.7-6.1); RED CELL DISTRIBUTION WIDTH 15.7 % (11.6-14.6)
[2022-09-05 07:35] LABS: CHLORIDE 107 mEq/L (98-107)
[2022-09-05] MEDS ORDERED: ACETAMINOPHEN 325MG TABLET PO ONE (09:00)
[2022-09-05] MEDS ORDERED: CARBIDOPA/LEVODOPA 25/100MG TABLET PO ONE ×2 (09:45)
[2022-09-05 13:10] VITALS: BP 106/75
== END 2022-09-05 13:06 | disposition short-term general hospital (02) ==
LOC: ER 04:28
DX: R55 Syncope and collapse (principal); I48.91 Unspecified atrial fibrillation; I10 Essential (primary) hypertension; Z98.890 Other specified postprocedural states; Z20.822 Contact with and (suspected) exposure to COVID-19
CPT/HCPCS: 36415; 70450; 71045; 72125; 72170; 80053; 83880; 84484; 85025; 87426; 87804; 93005; 99285; C9803